=== PATIENT | male | born 1945 | race Caucasian/White ===

== ENCOUNTER → 2022-10-01 | Outpatient (CLI) | payer OTHER ==
[~2022-10-01] MED LIST: /AUGM875TA OR; FLOM0.4C39 PO; GEMF600T PO; NORV5TAB OR; OSEL75CA PO; PROS5TAB OR; VENTAER INH; VICO5TAB OR
== END ==
LOC: M RAD 15:53
PROVIDERS: ATTEND Internal Medicine Interventional Cardiology
DX: I65.23 Occlusion and stenosis of bilateral carotid arteries (principal)

== ENCOUNTER → 2025-06-15 | Outpatient (CLI) | payer MEDICARE, OTHER ==
[~2025-06-15] MED LIST changes: +AMLO1TAB25 PO; +ATOR80TA59 PO; +CETI10CH PO; +ELIQ5TAB PO; +LOSA100T46 PO; +METF-877 PO; +METO1TAB7 PO; +OXYB10TA23 PO; +PANT-23 PO
== END ==
LOC: M ONCR 10:31
PROVIDERS: ATTEND General Practice
DX: C61 Malignant neoplasm of prostate (principal); C79.11 Secondary malignant neoplasm of bladder; C77.5 Secondary and unspecified malignant neoplasm of intrapelvic lymph nodes; Z80.1 Family history of malignant neoplasm of trachea, bronchus and lung; Z80.42 Family history of malignant neoplasm of prostate; Z79.01 Long term (current) use of anticoagulants; Z79.84 Long term (current) use of oral hypoglycemic drugs; Z79.899 Other long term (current) drug therapy
CPT/HCPCS: G0463; G2212

== ENCOUNTER → 2025-07-21 | Outpatient (RCR) | payer MEDICARE, OTHER | LOC: M ONCR 06-27 07:40 | PROVIDERS: ATTEND General Practice | DX: Z51.0 Encounter for antineoplastic radiation therapy (principal); C61 Malignant neoplasm of prostate ==

== ENCOUNTER 2025-08-14 13:51 | Outpatient (RCR) | payer OTHER | END 2025-08-20 | LOC: M ONCR 13:51 | PROVIDERS: ATTEND General Practice | DX: Z51.0 Encounter for antineoplastic radiation therapy (principal); C61 Malignant neoplasm of prostate ==